=== PATIENT | male | born 1990 | race Caucasian/White ===

== ENCOUNTER 2023-09-08 17:58 | Emergency (ER) | payer OTHER, SELFPAY ==
[2023-09-08 18:03] VITALS: BP 189/105
[2023-09-08 18:36] LABS: % Basophils 0.4 % (0-2); % Eosinophils 0.2 % (0-6); % Immature Granulocytes 0.6 % (0-0.5); % Lymphocytes 7.4 % (20.5-51.1); % Monocytes 6.4 % (1.7-9.3); Absolute Basophils 0.1 10^3/uL (0-0.2); Absolute Immature Granulocytes 0.1 10^3/uL (0-0.05); Absolute Lymphocytes 0.9 10^3/uL (1.2-3.4); Absolute Monocytes 0.8 10^3/uL (0.1-0.6); Absolute Neutrophils 10.3 10^3/uL (1.4-6.5); Hematocrit 46.3 % (39.0-52.0); Hemoglobin 16.6 g/dL (13.0-18.0); Mean Corp Hgb Conc. 35.9 g/dL (33.0-37.0); Mean Corpuscular Hgb 35.8 pg (27.0-31.0); Mean Corpuscular Volume 99.8 fL (80.0-94.0); Mean Platelet Volume 9.8 fL (7.4-10.4); Nucleated Red Blood Cells % 0 % (-); Platelet Count 226 10^3/uL (130-400); Red Blood Cell Count 4.64 10^6/uL (4.70-6.10); Red Cell Dist. Width 13.2 % (11.5-14.5); White Blood Cell Count 12.1 10^3/uL (4.8-10.8)
[2023-09-08 18:47] LABS: ALT (SGPT) 32 U/L (0-50); AST (SGOT) 39 U/L (17-59); Albumin 4.4 g/dl (3.5-5.0); Alkaline Phosphatase 70 U/L (38-126); Blood Urea Nitrogen 20 mg/dl (9-20); Calcium 9.1 mg/dl (8.4-10.2); Carbon Dioxide 27 mmol/L (22-30); Chloride 95 mmol/L (98-107); Glucose 126 mg/dl (70-99); Potassium 3.8 mmol/L (3.5-5.1); Sodium 134 mmol/L (135-145); Total Protein 7.1 g/dl (6.3-8.2); eGFR > 60.00
[2023-09-08 20:35] VITALS: BMI 28.1
[2023-09-08 20:43] VITALS: BP 150/90
[2023-09-08 21:00] VITALS: BP 151/74
[2023-09-08 21:02] LABS: COVID-19 Antigen Negative (Negative)
[2023-09-08] MEDS: NSS 500 IV (21:52)
[2023-09-08 22:00] VITALS: BP 186/104
[2023-09-08 22:12] LABS: D-Dimer 0.28 ug/mlFEU (0.00-0.50)
[2023-09-08 22:27] LABS: Troponin I < 0.012 ng/ml
--- NOTE | 2023-09-08 23:04 | ED.GENMED ---
History of Present Illness
General
Chief Complaint: Abdominal Symptoms
Source: patient
Exam Limitations: none
Time Seen by Provider: 09/08/23 20:59
Nursing documentation reviewed up to this point in time: agreed with
Travel History
Have you had any contact with someone who has COVID-19?: No
Do you have any symptoms of coronavirus? Fever > 100 degrees, chills, cough, shortness of breath, sore throat, loss of taste or smell, muscle aches, or headache?: No
History of Present Illness
History of Present Illness:
Patient to ED with complaint of vomiting, diarrhea, decreased appetite x 2 weeks. Today he felt SOB and shaky. Brought to ED by parents for eval. Denies fever, chills. No abdominal pain. No prior history of same.
Past History
Past History
ED Past Medical History: Psychiatric (anxiety)
ED Past Surgical History: Orthopedic
Review of Systems
Review of Systems
Allergies reviewed?: Yes
All Other Systems: ROS reviewed and negative except as documented in HPI and ROS
Constitutional: Reports no symptoms
EENT: Reports no symptoms
Respiratory: Reports cough and trouble breathing
Cardiac: Reports no symptoms
ABD/GI: Reports vomiting and diarrhea
: Reports no symptoms
Musculoskeletal: Reports no symptoms
Skin: Reports no symptoms
Neurological: Reports no symptoms
Psychiatric: Reports no symptoms
Phy Exam
General Physical Exam
General Presentation: well appearing and no apparent distress
General age: appears stated age
General Skin: warm and dry
General Habitus: normal
General Mental: alert
Cardiovascular Exam
Cardiovascular Exam: regular rate/rhythm and no edema
Pulmonary Exam
Pulmonary Exam: lungs clear, no respiratory distress and chest non tender
Gastrointestinal Exam
Gastrointestinal Exam: normal bowel sounds, non tender, soft, no organomegaly, non distended and no cva tenderness
Musculoskeletal Exam
Musculoskeletal Exam: full ROM and neuro vasc intact
Skin Exam
Skin Exam: normal color, warm/dry and no rash
Psychiatric Exam
Psychiatric Exam: normal mood/affect
Course
Orders/Labs/Results
Orders:
Orders
09/08/23 18:08
Electrocardiogram (*1) Urgent
Reason for Study: Hypertension, Benign
09/08/23 18:09
EKG- Treatment ONCE
09/08/23 18:22
CMP [Comprehensive Metabolic Panel] Urgent
Complete Blood Count/With Diff Urgent
09/08/23 20:42
COVID-19 Antigen Urgent
Source: Nasal Swab
Influenza A+B Rapid Molecular Urgent
JAY Source: Nasal Swab
Specimen Description:
09/08/23 21:24
0.9% Sodium Chloride 500 ml [Nss] 500 ml IV BOLUS
Ondansetron Injectable [Zofran] 4 mg IV NOW STA
09/08/23 21:51
D-Dimer Urgent
Troponin I Urgent
09/08/23 22:17
CR Chest - 2 Views Urgent
Comment:
Reason For Exam: SOB, pain
09/08/23 23:23
Ondansetron Orally Disint [Zofran Odt (Orally Disintegrating)] 4 mg PO NOW STA
Pantoprazole [Protonix] 40 mg PO NOW STA
Abnormal Lab Results
09/08/23
18:22
WBC 12.1 H 10^3/uL
(4.8-10.8)
RBC 4.64 L 10^6/uL
(4.70-6.10)
MCV 99.8 H fL
(80.0-94.0)
MCH 35.8 H pg
(27.0-31.0)
Abs Immat Gran (auto) 0.1 H 10^3/uL
(0-0.05)
Absolute Neuts (auto) 10.3 H 10^3/uL
(1.4-6.5)
Absolute Lymphs (auto) 0.9 L 10^3/uL
(1.2-3.4)
Absolute Monos (auto) 0.8 H 10^3/uL
(0.1-0.6)
Immature Gran % 0.6 H %
(0-0.5)
Neutrophils % 85.0 H %
(42.2-75.2)
Lymphocytes % 7.4 L %
(20.5-51.1)
Sodium 134 L mmol/L
(135-145)
Chloride 95 L mmol/L
(98-107)
Glucose 126 H mg/dl
(70-99)
09/08/23 18:22
09/08/23 18:22
Vital Signs
Initial and Last Documented VS:
Initial Vital Signs
Temp Pulse Resp BP Pulse Ox
99.2 F 53 18 189/105 100
09/08/23 18:03 09/08/23 18:03 09/08/23 18:03 09/08/23 18:03 09/08/23 18:03
Last Documented Vital Signs
Temp Pulse Resp BP Pulse Ox
99.2 F 92 21 159/103 97
09/08/23 18:03 09/08/23 22:37 09/08/23 22:37 09/08/23 23:24 09/08/23 23:24
*Radiology
Radiology exam reviewed: radiology read reviewed
*Pulse Oximetry
Patient hypoxic: no
*Critical Care Note
Total Time (30-74mins, 75-104mins- exclusive of procedures): Not Applicable
ED Attending Note
-
Portions of this chart may have been created with voice recognition software.� Occasional wrong word or��sound alike� substitutions may have occurred due to the inherent limitations of voice recognition software.
Discharge Plan
Departure
Patient Disposition: Home (Routine Discharge)
Date of Disposition: 09/08/23
Time of Disposition: 23:01
Patient with high blood pressure during this ER visit?: No
Condition: Good
Covid-19: Not Applicable
Discharge Problem:
Nausea and vomiting
Instructions: Diarrhea in adolescents and adults, Nausea and Vomiting, Adult (DC)
Prescriptions:
New
ondansetron 4 mg tablet,disintegrating
4 mg PO TID PRN (Reason: nausea and vomiting) Qty: 12 0RF
omeprazole 20 mg capsule,delayed release(DR/EC)
20 mg PO DAILY Qty: 30 0RF
Referrals:
Jalen Burns DO [Family Provider] -
Activity Restrictions/Additional Instructions:
Follow up with your GI specialist on Wednesday as planned.
Interventions
Interventions:
*Risk Screen - Suicide Last Done: 09/08/23 20:36
*General Assessment Last Done: 09/08/23 20:36
*Neglect/Abuse Screening Last Done: 09/08/23 20:36
ED- Fall Risk Assessment Last Done: 09/08/23 22:29
*ED COVID-19 Vaccine History Last Done: 09/08/23 20:36
*Nursing Disposition Last Done: 09/08/23 23:30
VS-Ennpne-Swdiwfensc Assessment Last Done: 09/08/23 23:25
Discharge Date and Time
Discharge Date/Time: 09/08/23 23:30
[2023-09-08 23:24] VITALS: BP 159/103
[2023-09-08] MEDS: ZOFRAN ODT (ORALLY DISINTEGRATING) 4 MG PO (23:35)
[2023-09-08] MEDS: PROTONIX 40 MG PO (23:35)
== END 2023-09-08 23:30 | disposition home or self-care (01) ==
LOC: EMR 17:58
PROVIDERS: Emergency Medicine; Nurse Practitioner; EMERGENCY PHYSICIAN Emergency Medicine; FAMILY PHYSICIAN Family Medicine
DX: R11.2 Nausea with vomiting, unspecified (principal); Z11.52 Encounter for screening for COVID-19
CPT/HCPCS: 99285; 96360; 71046; 80053; 84484; 85025; 85379; 87502; 87811; 93005